=== PATIENT | male | born 1975 | race Caucasian/White ===

== ENCOUNTER 2016-05-24 13:43 | Observation (INO) | payer SELFPAY ==
[~2016-05-24] VITALS: Ht 167.6 cm; Wt 80.0 kg
[~2016-05-24 13:43] MED LIST: INSU100V3 SC; METO10TA PO; PRIL20CA PO; TRAM50 PO
[2016-05-24 13:45] VITALS: BP 152/88; PULSE 88; RESP 20; TEMP 97.7; O2SAT 97
[2016-05-24] MEDS ORDERED: OMEP20TA PO (15:08)
[2016-05-24] MEDS ORDERED: NOVONP2 SQ (15:08)
--- NOTE | 2016-05-24 15:32 | RADRPT ---
EXAM DATE/TIME: 05/24/2016 15:26 [facility] COMPARISON: No previous studies available for comparison. INDICATIONS : Patient has had swelling in his legs for a week. He states he has pain in both legs. Patient is a smo ker. MEDICAL HISTORY : Hypertension. Diabetes mellitus type I. SURGICAL HISTORY : None. ENCOUNTER: Initial ACUITY: 1 week PAIN SCORE: 7/10 LOCATION: Bilateral Legs. FINDINGS: A single view of the chest demonstrates the lungs to be symmetrically aerated without evidence of mas s, infiltrate or effusion. The cardiomediastinal contours are unremarkable. Osseous structures are intact. CONCLUSION: No acute disease. Sorin Bejarano MD on May 24, 2016 at 15:30 Board Certified Radiologist. This report was verified electronically.
[2016-05-24 15:37] LABS: AUTOMATED NEUTROPHIL # 3.2 TH/MM3 (1.8-7.7); BASOPHIL # 0.1 TH/MM3 (0-0.2); BASOPHIL % 1.4 % (0.0-2.0); EOSINOPHIL # 0.1 TH/MM3 (0-0.4); EOSINOPHIL % 2.1 % (0.0-4.0); HEMATOCRIT 34.3 % (39.0-51.0); HEMO FLAGS DIFF FINAL; LYMPH % 41.6 % (9.0-44.0); LYMPHOCYTE # 2.8 TH/MM3 (1.0-4.8); MEAN CELL VOLUME 95.2 FL (80.0-100.0); MEAN CORPUSCULAR HEMOGLOBIN 31.9 PG (27.0-34.0); MEAN CORPUSCULAR HGB CONC 33.5 % (32.0-36.0); NEUT % 46.9 % (16.0-70.0); PLATELET COUNT 288 TH/MM3 (150-450); RED BLOOD COUNT 3.61 MIL/MM3 (4.50-5.90); RED CELL DISTRIBUTION WIDTH 13.8 % (11.6-17.2); WHITE BLOOD COUNT 6.7 TH/MM3 (4.0-11.0)
[2016-05-24 15:48] LABS: APTT (PATIENT) 23.9 SEC (24.3-30.1); INTERNATIONAL NORMALIZED RATIO 0.9 RATIO; PROTHROMBIN TIME - PATIENT 9.8 SEC (9.8-11.6)
[2016-05-24 15:59] LABS: ANION GAP 8 MEQ/L (5-15); AST (GOT) 16 U/L (15-37); BICARBONATE 28.9 MEQ/L (21.0-32.0); BLOOD UREA NITROGEN 19 MG/DL (7-18); CHLORIDE 108 MEQ/L (98-107); GLOMERULAR FILTRATION RATE 76 ML/MIN (>89); MAGNESIUM 1.9 MG/DL (1.5-2.5); POTASSIUM 3.2 MEQ/L (3.5-5.1); SODIUM (NA) 145 MEQ/L (136-145)
--- NOTE | 2016-05-24 15:59 | PD ---
HPI Chief Complaint: Edema Time Seen by Provider: 15:55 Travel History International Travel<30 days: No Contact w/Intl Traveler<30days: No Traveled to known affect area: No History of Present Illness HPI 40-year-old male that presents to the ED for evaluation of lower leg edema. Patient states that his been ongoing for the past couple of weeks but has been worsening for the past couple of days. Per patient she's had swelling in the past on the leg secondary to driving long distances but he never really think much of it. Per patient usually goes away. Per patient he has been just dealing with by walking. Per patient usually goes away but what scared him for the past couple days is that his been having more swelling on his groin area especially on his testicles which is new. He denies any pain with it but states that he feels like his full. Per patient he is also having some swelling on his abdomen which per patient is usually no swollen like this. He does have a history of gastroparesis and diabetes type 1. He denies any fevers chills or sweats. No history of blood clots. No recent travel. Per patient she is compliant with his diabetic medication. Denies any history of hypothyroidism. No allergies to medication. PFSH Past Medical History Blood Disorders: No Heart Rhythm Problems: No Cancer: No Cardiovascular Problems: Yes (htn) High Cholesterol: No Chest Pain: No Congestive Heart Failure: No Diabetes: Yes (novolog N) Patient Takes Glucophage: No Diminished Hearing: No Endocrine: Yes Gastrointestinal Disorders: Yes (GASTROPARESIS) Genitourinary: No Hypertension: Yes Immune Disorder: No Implanted Vascular Access Dvce: No Musculoskeletal: No Neurologic: No Psychiatric: No Reproductive: No Respiratory: No Immunizations Current: Yes Thyroid Disease: No PNEUMOCCOCAL Vaccine (Year): 2 Past Surgical History Surgical History: No Previous Surgery Other Surgery: No Social History Alcohol Use: Yes Tobacco Use: Yes (1.5 PPD) Substance Use: Yes (MARAJUANA) Allergies-Medications (Allergen,Severity, Reaction): Coded Allergies: No Known Allergies (Verified , 05/24/16) Reported Meds & Prescriptions Reported Meds & Active Scripts Active Reported Omeprazole 20 Mg Tab 20 Mg PO DAILY Novolin N Inj (Insulin Human NPH) 1,000 Unit/10 Ml Vial 0 SQ DIRECTED Sliding Scale As Directed. Review of Systems General / Constitutional: No: Fever, Chills, Weight Gain, Weight Loss, Other Eyes: No: Diploplia, Blurred Vision, Photophobia, Drainage, Redness, Foreign Body Sensation, Pain, Tearing, Blind Spots, Visual changes, Blindness, Other HENT: No: Headaches, Vertigo, Lightheadedness, Sore Throat, Rhinitis, Rhinorrhea, Congestion, Nosebleed, Neck Stiffness, Neck Pain, Masses, Gingival Bleeding, Dental Difficulties, Ear Discharge, Earache, Other Cardiovascular: Positive: Edema, Claudication, No: Chest Pain or Discomfort, Palpitations, Irregular Rhythm, Tachycardia, Diaphoresis, Syncope, Dyspnea on exertion, Varicosities, Cyanosis, Varicosities, Phlebitis, Other Respiratory: No: Cough, Shortness of Breath, Wheezing, Sneezing, Orthopnea, Hemoptysis, Stridor, Night Sweats, Pleuritic Pain, Other Gastrointestinal: Positive: Abdominal Pain, No: Nausea, Vomiting, Diarrhea, Hematemesis, Hematochezia, Constipation, Changes in Bowel Habits, Indigestion, Dysphagia, Loss of Appetite, Other Genitourinary: No: Urgency, Frequency, Dysuria, Nocturia, Hematuria, Decreased Urinary Output, Oliguria, Hesitancy, Dribbling, Incontinence, Pelvic Pain, Flank Pain, Dyspareunia, Discharge, Dysmenorrhea, Menorrhagia, Metorrhagia, Vaginal Bleeding, Other Musculoskeletal: Positive: Weakness, Edema, No: Myalgias, Arthralgias, Limited ROM, Cramping, Pain, Atrophy, Other Skin: No Rash, No Itching, No Dryness, No Lumps, No Hives, No Change in Pigmentation, No Change in nails, No Alopecia, No Lesions, No Breast Lumps, No Breast Tenderness, No Breast Swelling, No Other Neurologic: No: Weakness, Dizziness, Syncope, Focal Abnormalities, Coordination Problem, Tremor, Ataxia, Headache, Change in Mentation, Slurred Speech, Paresthesia, Incontinence, Seizures, Sensory Disturbance, Other Psychiatric: No: Anxiety, Depression, Suicidal Ideations, Disorder of Thought, Mood Disorder, Substance Abuse, Homicidal Ideation, Other Endocrine: No: Heat Intolerance, Cold Intolerance, Polyuria, Polydipsia, Other Hematologic/Lymphatic: No: Easy Bruising, Lymph Node Enlargement, Other Physical Exam Narrative GENERAL: SKIN: Warm and dry. HEAD: Atraumatic. Normocephalic. EYES: Pupils equal and round. No scleral icterus. No injection or drainage. ENT: No nasal bleeding or discharge. Mucous membranes pink and moist. Tongue is midline. No uvula deviation. NECK: Trachea midline. No JVD. CARDIOVASCULAR: Regular rate and rhythm. No murmurs, S3, S4. RESPIRATORY: No accessory muscle use. Clear to auscultation. Breath sounds equal bilaterally. GASTROINTESTINAL: Abdomen soft, non-tender, nondistended. Hepatic and splenic margins not palpable. MUSCULOSKELETAL: Extremities without clubbing, cyanosis, or edema. No obvious deformities. Full range of motion of the upper and lower extremities bilaterally. 2+ pulses bilaterally. No lumbar, thoracic, cervical spine tenderness to palpation. NEUROLOGICAL: Awake and alert. No obvious cranial nerve deficits. Motor grossly within normal limits. Five out of 5 muscle strength in the arms and legs. Normal speech. PSYCHIATRIC: Appropriate mood and affect; insight and judgment normal. Data Data Last Documented VS Vital Signs Date Time Temp Pulse Resp B/P Pulse Ox O2 Delivery O2 Flow Rate FiO2 05/24/16 17:11 77 18 139/87 98 Room Air 05/24/16 13:45 97.7 Orders Electrocardiogram (05/24/16 15:01) Complete Blood Count With Diff (05/24/16 15:01) Prothrombin Time / Inr (Pt) (05/24/16 15:01) Act Partial Throm Time (Ptt) (05/24/16 15:01) Magnesium (Mg) (05/24/16 15:01) Thyroid Stimulating Hormone (05/24/16 15:01) Chest, Single Ap (05/24/16 15:01) Ct Abd/Pel W Iv Contrast(Rout) (05/24/16 15:01) Iv Access Insert/Monitor (05/24/16 15:01) Comprehensive Metabolic Panel (05/24/16 15:01) B-Type Natriuretic Peptide (05/24/16 15:01) Us Leg Venous Doppler Bilat (05/24/16 16:23) Iohexol 350 Inj (Omnipaque 350 Inj) (05/24/16 17:10) Furosemide Inj (Lasix Inj) (05/24/16 18:15) Labs Laboratory Tests Test 05/24/16 15:14 White Blood Count 6.7 TH/MM3 Red Blood Count 3.61 MIL/MM3 Hemoglobin 11.5 GM/DL Hematocrit 34.3 % Mean Corpuscular Volume 95.2 FL Mean Corpuscular Hemoglobin 31.9 PG Mean Corpuscular Hemoglobin 33.5 % Concent Red Cell Distribution Width 13.8 % Platelet Count 288 TH/MM3 Mean Platelet Volume 7.6 FL Neutrophils (%) (Auto) 46.9 % Lymphocytes (%) (Auto) 41.6 % Monocytes (%) (Auto) 8.0 % Eosinophils (%) (Auto) 2.1 % Basophils (%) (Auto) 1.4 % Neutrophils # (Auto) 3.2 TH/MM3 Lymphocytes # (Auto) 2.8 TH/MM3 Monocytes # (Auto) 0.5 TH/MM3 Eosinophils # (Auto) 0.1 TH/MM3 Basophils # (Auto) 0.1 TH/MM3 CBC Comment DIFF FINAL Differential Comment Prothrombin Time 9.8 SEC Prothromb Time International 0.9 RATIO Ratio Activated Partial 23.9 SEC Thromboplast Time Sodium Level 145 MEQ/L Potassium Level 3.2 MEQ/L Chloride Level 108 MEQ/L Carbon Dioxide Level 28.9 MEQ/L Anion Gap 8 MEQ/L Blood Urea Nitrogen 19 MG/DL Creatinine 1.09 MG/DL Estimat Glomerular Filtration 76 ML/MIN Rate Random Glucose 155 MG/DL Calcium Level 7.5 MG/DL Magnesium Level 1.9 MG/DL Total Bilirubin 0.2 MG/DL Aspartate Amino Transf 16 U/L (AST/SGOT) Alanine Aminotransferase 23 U/L (ALT/SGPT) Alkaline Phosphatase 49 U/L B-Type Natriuretic Peptide 74 PG/ML Total Protein 5.0 GM/DL Albumin 2.3 GM/DL Thyroid Stimulating Hormone 0.655 uIU/ML [address] [place] [address] Medical Decision Making Medical Screen Exam Complete: Yes Emergency Medical Condition: Yes Medical Record Reviewed: Yes Interpretation(s) CBC & BMP Diagram 05/24/16 15:14 LFTs WNL BNP WNL Last Impressions Chest X-Ray 05/24/16 1501 Signed Impressions: Service Date/Time: Tuesday, May 24, 2016 15:26 - CONCLUSION: No acute disease. Sorin Bejarano MD Abdomen/Pelvis CT 05/24/16 1501 Signed Impressions: Service Date/Time: Tuesday, May 24, 2016 16:58 - CONCLUSION: 1. No abdominal ascites. 2. No acute inflammatory process. 3. Diffuse anasarca. Sorin Bejarano MD Differential Diagnosis General as edema versus pitting edema versus ascites versus podagra versus DVT versus kidney failure versus liver failure versus Narrative Course 32-year-old male that presents to the ED for evaluation of lower leg edema which is worsening as well as abdominal discomfort. Patient was properly examined and was found to have signs and symptoms consistent with appears to be edema. Unclear etiology at this time. Labs and imaging ordered. Labs and imaging showed no sign of acute disease other than for severe anascara. Case was discussed with my attending evaluated the patient with me and recommends admission for further workup. For sure we don't have an actual source of why the patient is retaining fluid. Residents were paged Phani Mcadams May 24, 2016 15:59
[2016-05-24 16:10] LABS: ALKALINE PHOSPHATASE 49 U/L (45-117); ALT (GPT) 23 U/L (12-78); TOTAL BILIRUBIN ADULT 0.2 MG/DL (0.2-1.0)
--- NOTE | 2016-05-24 16:28 | EKG ---
Date Performed: 05/24/2016 Time Performed: 15:14:08 PTAGE: 40 years EKG: Sinus rhythm NORMAL ECG PREVIOUS TRACING : 05/31/2010 13.14 No significant change from previous tracing noted. DOCTOR: Franki Torres Interpretating Date/Time 05/24/2016 16:26:41
[2016-05-24] MEDS ORDERED: IOHEXOL 350 MG/ML 10 ML VIAL (for RAD DIAG) IV ONE (17:10)
[2016-05-24 17:11] VITALS: BP 139/87; PULSE 77; RESP 18; O2SAT 98
--- NOTE | 2016-05-24 17:23 | RADRPT ---
EXAM DATE/TIME: 05/24/2016 16:58 [facility] COMPARISON: No previous studies available for comparison. INDICATIONS : Abdomen pain, ascites. IV CONTRAST: 86 cc Omnipaque 350 (iohexol) IV ORAL CONTRAST: No oral contrast ingested. RADIATION DOSE: 11.07 CTDIvol (mGy) MEDICAL HISTORY : Hypertension. Diabetes mellitus type 1. SURGICAL HISTORY : None. ENCOUNTER: Initial ACUITY: 1 day PAIN SCALE: 5/10 LOCATION: Abdomen TECHNIQUE: Volumetric scanning of the abdomen and pelvis was performed. Using automated exposure control and ad justment of the mA and/or kV according to patient size, radiation dose was kept as low as reasonably achievable to obtain optimal diagnostic quality images. FINDINGS: LOWER LUNGS: The visualized lower lungs are clear. LIVER: Homogeneous density without lesion. There is no dilation of the biliary tree. No calcified gallston es. Benign calcifications in the periphery of the anterior liver. SPLEEN: Normal size without lesion. PANCREAS: Within normal limits. KIDNEYS: Normal in size and shape. There is no mass, stone or hydronephrosis. ADRENAL GLANDS: Within normal limits. VASCULAR: There is no aortic aneurysm. BOWEL/MESENTERY: The stomach, small bowel, and colon demonstrate no acute abnormality. There is no free intraperitone al air or fluid. ABDOMINAL WALL: Within normal limits. RETROPERITONEUM: There is no lymphadenopathy. BLADDER: No wall thickening or mass. REPRODUCTIVE: Within normal limits. INGUINAL: There is no lymphadenopathy or hernia. MUSCULOSKELETAL: Diffuse anasarca. CONCLUSION: 1. No abdominal ascites. 2. No acute inflammatory process. 3. Diffuse anasarca. Sorin Bejarano MD on May 24, 2016 at 17:20 Board Certified Radiologist. This report was verified electronically.
[2016-05-24] MEDS ORDERED: FUROSEMIDE 40 MG/4 ML VIAL IV PUSH ONE (18:15)
--- NOTE | 2016-05-24 18:53 | RADRPT ---
EXAM DATE/TIME: 05/24/2016 18:07 [facility] COMPARISON: No previous studies available for comparison. INDICATIONS : Bilateral leg swelling. MEDICAL HISTORY : Hypertension. Gastroparesis. Diabetes. Measles. SURGICAL HISTORY : None. ENCOUNTER: Initial ACUITY: 2 weeks PAIN SCORE: 0/10 LOCATION: Bilateral legs. TECHNIQUE: Venous ultrasound of the left and right leg was performed from the inguinal ligament to the proximal calf. Real-time, color Doppler and spectral tracing, compression and augmentation techniques were us ed. FINDINGS: RIGHT LEG: There is normal compressibility of the deep venous system from the inguinal region to the proximal ca lf. No echogenic clot is seen in the lumen of the common femoral, femoral, popliteal, and posterior tibial veins. There is a normal response of the venous system to proximal and distal augmentation an d respiration. Largest lymph node measures 29 mm. LEFT LEG: There is normal compressibility of the deep venous system from the inguinal region to the proximal ca lf. No echogenic clot is seen in the lumen of the common femoral, femoral, popliteal, and posterior tibial veins. There is a normal response of the venous system to proximal and distal augmentation an d respiration. Largest lymph node measures 26 mm. CONCLUSION: 1. No DVT in either lower extremity. 2. Prominent lymph nodes in the groin bilaterally. Sorin Bejarano MD on May 24, 2016 at 18:51 Board Certified Radiologist. This report was verified electronically.
[2016-05-24] MEDS ORDERED: NICOTINE 14 MG/24 HR PATCH TD ONE (19:15)
--- NOTE | 2016-05-24 20:02 | HHI.HP ---
[facility] Service Family Medicine Primary Care Physician No Primary Care Physician Admission Diagnosis anasarca, edema of unknown etiology Diagnoses: International Travel<30 Days: No Contact w/Intl Traveler<30days: No Known Affected Area: No History of Present Illness Patient is a 40-year-old man with a history of diabetes who presents with a chief complaint of edema and anasarca. Patient reports edema in his legs, abdomen, scrotum. Patient has noted slight swelling of legs since last year associated with sitting in a chair. This lower extremity edema usually only lasts a night and is gone by the time he wakes up in the morning. This problem didn't really bother him, and he has not seen a doctor about this problem. Patient reports that this episode of swelling has been different because he has been swollen for a week. He reports that it is gradually getting worse. He doesn 't know the cause. Patient reports that he has been a pack per day smoker since 20 years old. He also reports that everything he eats is salty. Patient denied any history of any heart disease, liver disease, kidney disease. Patient reports that he did present here to [facility] about a year ago and was told that he may need an outpatient cholecystectomy. He denies any chest pain, shortness of breath, orthopnea, dyspnea on exertion, paroxysmal nocturnal dyspnea, fever, chills, losing weight, cold symptoms including cough, runny nose. Pt reports vomiting daily for years. He thinks it may be related to reflux. Patient reports history of an upper endoscopy. Patient reports daily marijuana use. He reports abdominal pain associated with nausea and vomiting. He reports that the only thing that seems to help relieve the symptoms is a hot shower. Patient reports 10-15 episodes of diarrhea every day for the past 6 months. He denies any bloody or black stools. He reports that his bowel movements are liquid and karen in color. No history of blood clots. No recent travel. Per patient, he is compliant with his diabetic medication. Denies any history of hypothyroidism. No allergies to medication. Patient reports increased polyuria and polydipsia when his blood sugar runs high , which has not been a problem recently. (Jose Angel Costa MD R1) Review of Systems Constitutional: COMPLAINS OF: Weight gain (past week), DENIES: Fever, Weight loss, Chills, Dizziness Endocrine: DENIES: Polydipsia, Polyuria Eyes: COMPLAINS OF: Blurred vision (for past week, with waking up) Ears, nose, mouth, throat: DENIES: Throat pain, Running Nose Respiratory: DENIES: Cough, Shortness of breath Cardiovascular: COMPLAINS OF: Lower Extremity Edema, DENIES: Chest pain, Dyspnea on Exertion, PND, Orthopnea, Claudication Gastrointestinal: COMPLAINS OF: Abdominal pain, Diarrhea, Nausea, Vomiting, Difficulty Swallowing, DENIES: Black stools, Bloody stools, Constipation Genitourinary: COMPLAINS OF: Testicular Swelling, DENIES: Dysuria, Testicular Pain Musculoskeletal: COMPLAINS OF: Joint pain (hand arthritis), Back pain Integumentary: DENIES: Rash Hematologic/lymphatic: DENIES: Bruising Neurologic: COMPLAINS OF: Paresthesias (3 fingers right, 2 fingers left go numb , tingly, pins, needles), DENIES: Abnormal gait, Headache, Localized weakness Psychiatric: COMPLAINS OF: Mood changes (angrier), DENIES: Anxiety (Jose Angel Costa MD R1) Past Family Social History Past Medical History DM since 14 years ago, onset in his 20s. History of insulin dependent diabetes mellitus, gastroparesis, esophagitis with ulceration status post EGD in August 2011 Past Surgical History upper endoscopy/EGD in August 2011 Reported Medications insulin novolin 40u bid ranitidine (Jose Angel Costa MD R1) Allergies: Coded Allergies: No Known Allergies (Verified , 05/24/16) Active Ordered Medications Current Medications Medications (Trade) Dose Ordered Sig/Fatimah Route Start Time Stop Time Status Last Admin (NS Flush) 2 ml UNSCH PRN FLUSH 05/24/16 20:30 (NS Flush) 2 ml BID FLUSH 05/24/16 21:00 05/24/16 21:22 (Tylenol) 650 mg Q4H PRN PO 05/24/16 20:30 (Zofran Inj) 4 mg Q6H PRN IVP 05/24/16 20:30 (Restoril) 15 mg HS PRN PO 05/24/16 20:30 (Lovenox Inj) 40 mg Q24H SQ 05/24/16 21:00 05/24/16 21:20 (Narcan Inj) 0.4 mg UNSCH PRN IV 05/24/16 20:30 (Lasix Inj) 20 mg BID@09,18 IV PUSH 05/25/16 09:00 (KCl) 40 meq DAILY PO 05/24/16 20:30 05/24/16 21:20 Family History DM in grandparents on both sides, and a sister Grandma had a CVA, heart surgery Social History Patient reports smoking about 8 g of marijuana every day to help with nausea, insomnia, back pain, appetite. Patient reports smoking 1ppd for about 20years. Patient reports alcohol use about once every 6 months. He denies ever binge drinking or daily drinking Alcohol. (Jose Angel Costa MD R1) Physical Exam Vital Signs Vital Signs Date Time Temp Pulse Resp B/P Pulse Ox O2 Delivery O2 Flow Rate FiO2 05/24/16 17:11 77 18 139/87 98 Room Air 05/24/16 15:05 18 05/24/16 13:45 97.7 88 20 152/88 97 Room Air Physical Exam GENERAL: This is a well-nourished, well-developed male patient, in no apparent distress. SKIN: No rashes, ecchymoses or lesions. Cool and dry. + Multiple Tattoos HEAD: Atraumatic. Normocephalic. EYES: Pupils mildly unequal but round and reactive. Extraocular motions intact. No scleral icterus. No injection or drainage. ENT: Nose without bleeding, purulent drainage. Throat without erythema, tonsillar hypertrophy or exudate. Uvula midline. Airway patent. NECK: Trachea midline. No JVD or lymphadenopathy. Supple, nontender, no meningeal signs. CARDIOVASCULAR: Regular rate and rhythm without murmurs, gallops, or rubs. RESPIRATORY: Clear to auscultation. Breath sounds equal bilaterally. No wheezes , rales, or rhonchi. GASTROINTESTINAL: Abdomen soft, non-tender, distended with positive fluid wave. No hepatomegaly, or palpable masses. No guarding. GENITOURINARY: Markedly edematous/distended scrotum MUSCULOSKELETAL: Extremities without clubbing, cyanosis. Lower extremities with 2+ pitting edema to knees bilaterally, 1+ pitting edema up lateral thighs. No joint tenderness, effusion, or edema noted. No calf tenderness. NEUROLOGICAL: Awake and alert. Cranial nerves II through XII grossly intact. Motor and sensory grossly within normal limits. Normal speech. Laboratory Laboratory Tests Test 05/24/16 15:14 White Blood Count 6.7 Red Blood Count 3.61 Hemoglobin 11.5 Hematocrit 34.3 Mean Corpuscular Volume 95.2 Mean Corpuscular Hemoglobin 31.9 Mean Corpuscular Hemoglobin 33.5 Concent Red Cell Distribution Width 13.8 Platelet Count 288 Mean Platelet Volume 7.6 Neutrophils (%) (Auto) 46.9 Lymphocytes (%) (Auto) 41.6 Monocytes (%) (Auto) 8.0 Eosinophils (%) (Auto) 2.1 Basophils (%) (Auto) 1.4 Neutrophils # (Auto) 3.2 Lymphocytes # (Auto) 2.8 Monocytes # (Auto) 0.5 Eosinophils # (Auto) 0.1 Basophils # (Auto) 0.1 CBC Comment DIFF FINAL Differential Comment Prothrombin Time 9.8 Prothromb Time International 0.9 Ratio Activated Partial 23.9 Thromboplast Time Sodium Level 145 Potassium Level 3.2 Chloride Level 108 Carbon Dioxide Level 28.9 Anion Gap 8 Blood Urea Nitrogen 19 Creatinine 1.09 Estimat Glomerular Filtration 76 Rate Random Glucose 155 Calcium Level 7.5 Magnesium Level 1.9 Total Bilirubin 0.2 Aspartate Amino Transf 16 (AST/SGOT) Alanine Aminotransferase 23 (ALT/SGPT) Alkaline Phosphatase 49 B-Type Natriuretic Peptide 74 Total Protein 5.0 Albumin 2.3 Thyroid Stimulating Hormone 0.655 3rd Gen (Jose Angel Costa MD R1) Result Diagram: 05/24/16 1514 05/24/16 1514 Imaging Last Impressions Lower Extremity Ultrasound 05/24/16 1623 Signed Impressions: Service Date/Time: Tuesday, May 24, 2016 18:07 - CONCLUSION: 1. No DVT in either lower extremity. 2. Prominent lymph nodes in the groin bilaterally. Sorin Bejarano MD Chest X-Ray 05/24/16 1501 Signed Impressions: Service Date/Time: Tuesday, May 24, 2016 15:26 - CONCLUSION: No acute disease. Sorin Bejarano MD Abdomen/Pelvis CT 05/24/16 1501 Signed Impressions: Service Date/Time: Tuesday, May 24, 2016 16:58 - CONCLUSION: 1. No abdominal ascites. 2. No acute inflammatory process. 3. Diffuse anasarca. Sorin Bejarano MD Course In the emergency department, patient had a BNP, CMP, CT abdomen and pelvis with IV contrast, AP chest x-ray, TSH, magnesium, a PTT, PT/INR, CBC, EKG, ultrasound of legs with venous Doppler, Lasix 40 mg IV push 1, UA, nicotine patch, admission order. (Jose Angel Costa MD R1) Assessment and Plan Assessment and Plan Patient is 40-year-old man with a history of insulin-dependent diabetes mellitus and leg swelling for the past year who presents with anasarca for the past week. Patient also presents with 10-15 episodes per day of liquid diarrhea for the past 6 months, and nonbilious nonbloody vomiting associated with nausea and abdominal pain everyday for years. Code Status Full code Discussed Condition With Patient seen and discussed with Dr. Sohan Cee (Jose Angel Costa MD R1) Problem List: (1) Anasarca Status: Acute Plan: Patient is a 40-year-old man with a one-year history of occasional leg swelling, a high salt diet, [id number] smoking history, no previous heart disease, liver disease, kidney disease who presents with a week of gradually worsening anasarca. Unlikely to be related to his kidney, liver, heart given blood work and CT abdomen and pelvis within normal limits. Unlikely related to clot given negative ultrasound study with venous Doppler. UA showed proteinuria of 100, less than expected for nephrotic syndrome, which is defined his proteinuria greater than 3.5 g per day, albumin less than 3.5 mg/ dL, edema, increased cholesterol 24-hour urine protein, urine protein/creatinine ratio Lipid studies looking for increased cholesterol If patient is found to have nephrotic syndrome, we will initiate workup with urine microscopy, ROMA, anti-double stranded DNA, C3, C4, SPEP, free light chains , hepatitis B, hepatitis C, HIV, RPR, PLA2 receptor antibody, consider renal biopsy Possibly related to high salt diet Possibly related to smoking causing venous insufficiency vs lymphedema Lasix 20 mg IV twice a day Potassium chloride 40 mEq by mouth daily BMP daily CANDACE stockings bilaterally Physical therapy consult to help patient with mobility Case management consult to help connect this patient with a primary care physician Oxygen as needed (2) Nausea and vomiting Status: Chronic Plan: Patient with a history of daily marijuana use reports daily nonbilious nonbloody vomiting every day for years with associated nausea and abdominal pain. He reports that these symptoms are only relieved with hot showers and marijuana use. Differential diagnosis includes IBD, IBS, peptic ulcer disease, chronic pancreatitis, or most likely diagnosis of cannabis hyperemesis syndrome. Recommended patient try to go at least a month without smoking any marijuana GI consult (3) Dysphagia Status: Chronic Plan: Patient is an insulin-dependent diabetic with a history of gastroparesis. GI consult for dysphagia, pain and difficulty swallowing (4) Diarrhea Status: Chronic Plan: Patient reports 6 months of 10-15 episodes per day of nonbloody, sand- colored diarrhea. Denies any fever, weight loss, black or bloody stools. Differential diagnosis includes medication-induced such as PPI, osmotic such as lactose intolerance, malabsorption such as celiac disease, Whipple's disease, small intestinal bacterial overgrowth, pancreatic insufficiency, inflammatory such as infections or inflammatory bowel disease, secretory such as hormonal imbalances or laxative abuse, motility such as irritable bowel syndrome. GI consult Endomysial antibodies, tissue transglutaminase antibodies to rule out celiac disease; also getting iron panel to look for iron deficiency anemia or folate deficiency anemia Blood culture Stool leukocytes, stool Hemoccult, fecal fat to differentiate between different kinds of diarrhea Lipase to rule out pancreatic insufficiency CBC, BMP qd (5) Anemia Status: Chronic Plan: Patient presents with anemia with a hemoglobin of 11.5 but normal MCV in the context of a possibly malabsorptive diarrhea. Iron studies (6) Insulin dependent diabetes mellitus Status: Chronic Plan: Patient reports taking Novolin 40 units subcutaneous twice a day. Novolin 20 units subcutaneous twice a day Low-dose sliding scale insulin protocol with Novolin Hemoglobin A1c (7) Nutrition, metabolism, and development symptoms Status: Acute Plan: Fluids: Patient hydrating well by mouth Electrolytes: Monitor and replete as necessary Nutrition: Regular basic diet with fluid restriction to less than 1.5 L per day and salt restriction to less than 2 g of sodium per day GI prophylaxis: Continue patient's home anti-reflux medication converted by our pharmacy to pantoprazole 20 mg by mouth daily; consider holding this medication as a possible cause of patient's diarrhea, but patient insists that he needs this medication to avoid reflux symptoms (8) No contraindication to deep vein thrombosis (DVT) prophylaxis Status: Acute Plan: Patient with normal renal function. Lovenox 40 mg subcutaneous every 24 hours (9) Tobacco use Status: Chronic Plan: Patient reports smoking about a pack per day for the past 20 years. Nicotine patch transdermal daily (Jose Angel Costa MD R1) Jose Angel Costa MD R1 May 24, 2016 20:02 Arlette Elise MD May 25, 2016 15:59
[2016-05-24 20:26] LABS: BLOOD, URINE TRACE (NEG); COMMENT (UR) CULT NOT INDICATED; CULTURE IF INDICATED CULT NOT INDICATED; GLUCOSE,URINE NEG (NEG); KETONE, URINE NEG (NEG); MUCUS URINE FEW /lpf (OCC); NITRITE,URINE NEG (NEG); PH, URINE 6.5 (5.0-8.5); SQUAMOUS EPITHELIAL CELL URINE <1 /hpf (0-5); URINE COLOR LIGHT-YELLOW (YELLW/STRAW)
[2016-05-24] MEDS ORDERED: SODIUM CHLORIDE 0.9% FLUSH 5 ML FLUSH FLUSH PRN (20:30)
[2016-05-24] MEDS ORDERED: NALOXONE HCL 0.4 MG/ML AMP IV PRN (20:30)
[2016-05-24] MEDS ORDERED: TEMAZEPAM 15 MG CAP PO PRN (20:30)
[2016-05-24] MEDS ORDERED: ACETAMINOPHEN 325 MG TAB PO PRN (20:30)
[2016-05-24] MEDS ORDERED: ONDANSETRON HCL 4 MG/2 ML VIAL IVP PRN (20:30)
[2016-05-24] MEDS ORDERED: ENOXAPARIN SODIUM 40 MG/0.4 ML SYRINGE SQ SCH (21:00)
[2016-05-24 21:19] VITALS: BP 136/82; PULSE 73; RESP 16; O2SAT 99
[2016-05-24] MEDS: POTASSIUM CHLORIDE 10 MEQ CONTROLLED RELEASE TAB PO SCH (21:20)
[2016-05-24] MEDS: SODIUM CHLORIDE 0.9% FLUSH 5 ML FLUSH FLUSH SCH (21:22)
[2016-05-24] MEDS ORDERED: GLUCAGON 1 MG/ML VIAL OTHER PRN (22:00)
[2016-05-24] MEDS ORDERED: DEXTROSE 50% IN WATER 50 ML VIAL(D50) IV PUSH PRN (22:00)
[2016-05-24 22:35] VITALS: BP 155/97; PULSE 75; RESP 20; TEMP 97.8; O2SAT 98
[2016-05-25 00:55] VITALS: BP 137/68; PULSE 73; RESP 20; TEMP 97.6; O2SAT 99
[2016-05-25 04:48] VITALS: BP 135/91; PULSE 73; RESP 20; TEMP 98; O2SAT 98
[2016-05-25] MEDS: INSULIN NovoLIN REGULAR SUPPLEMENTAL SCALE SQ SCH ×2 (06:41→11:00)
[2016-05-25 07:26] VITALS: O2SAT 98
[2016-05-25 08:00] VITALS: BP 153/89; PULSE 72; RESP 18; TEMP 96.1; O2SAT 98
[2016-05-25] MEDS ORDERED: INSULIN HUMAN REGULAR 1,000 UNITS/10 ML VIAL SQ SCH (08:00)
[2016-05-25 08:12] LABS: AUTOMATED NEUTROPHIL # 3.4 TH/MM3 (1.8-7.7); BASOPHIL # 0.1 TH/MM3 (0-0.2); BASOPHIL % 1.4 % (0.0-2.0); EOSINOPHIL # 0.2 TH/MM3 (0-0.4); EOSINOPHIL % 2.6 % (0.0-4.0); HEMATOCRIT 37.1 % (39.0-51.0); HEMO FLAGS DIFF FINAL; LYMPH % 31.9 % (9.0-44.0); LYMPHOCYTE # 1.9 TH/MM3 (1.0-4.8); MEAN CELL VOLUME 95.1 FL (80.0-100.0); MEAN CORPUSCULAR HGB CONC 33.7 % (32.0-36.0); MONO % 6.2 % (0.0-8.0); NEUT % 57.9 % (16.0-70.0); PLATELET COUNT 295 TH/MM3 (150-450); RED CELL DISTRIBUTION WIDTH 13.8 % (11.6-17.2); WHITE BLOOD COUNT 5.8 TH/MM3 (4.0-11.0)
[2016-05-25] MEDS: POTASSIUM CHLORIDE 10 MEQ CONTROLLED RELEASE TAB PO SCH (08:26)
[2016-05-25] MEDS: SODIUM CHLORIDE 0.9% FLUSH 5 ML FLUSH FLUSH SCH (08:27)
[2016-05-25 08:35] LABS: ANION GAP 7 MEQ/L (5-15); BICARBONATE 28.6 MEQ/L (21.0-32.0); BLOOD UREA NITROGEN 16 MG/DL (7-18); CHLORIDE 106 MEQ/L (98-107); GLOMERULAR FILTRATION RATE 96 ML/MIN (>89); HDL CHOLESTEROL 95.3 MG/DL (40.0-60.0); LDL CHOLESTEROL 84 MG/DL (0-99); POTASSIUM 3.8 MEQ/L (3.5-5.1); SODIUM (NA) 142 MEQ/L (136-145); TRANSFERRIN IRON PROFILE 200 MG/DL (200-360)
[2016-05-25] MEDS ORDERED: ALBUMIN HUMAN 5% 25 GM/500 ML BOTTLE IV SCH ×2 (09:00→18:00)
[2016-05-25] MEDS ORDERED: PANTOPRAZOLE SOD 20 MG DELAYED RELEASE TAB PO SCH (09:00)
[2016-05-25] MEDS ORDERED: NICOTINE 14 MG/24 HR PATCH TD SCH (09:00)
[2016-05-25] MEDS ORDERED: FUROSEMIDE 20 MG/2 ML VIAL IV PUSH SCH (09:00)
[2016-05-25 10:18] LABS: HEMOGLOBIN A1a 1.3 %; HEMOGLOBIN A1b 0.9 %; HEMOGLOBIN Ao 76.3 %; HEMOGLOBIN F 1.6 %; HEMOGLOBIN LA1C 3.4 %; HEMOGLOBIN P3 4.6 %
[2016-05-25 12:00] VITALS: BP 141/85; PULSE 75; RESP 16; TEMP 96; O2SAT 99
[2016-05-25] MEDS ORDERED: ERYTHROMYCIN EC 500 MG TABEC PO SCH (12:00)
--- NOTE | 2016-05-25 14:19 | HHI.DCPOC ---
Discharge Care Plan Diagnosis: (1) Anasarca (2) Anemia (3) Diarrhea (4) Nausea and vomiting (5) Insulin dependent diabetes mellitus (6) Pancreatitis Goals to Promote Your Health * To prevent worsening of your condition and complications * To maintain your health at the optimal level Directions to Meet Your Goals Take your medications as prescribed Follow your dietary instruction Follow activity as directed Keep your appointments as scheduled Take your immunizations and boosters as scheduled If your symptoms worsen call your PCP, if no PCP go to Urgent Care Center or Emergency Room Smoking is Dangerous to Your Health. Avoid second hand smoke Call the 24-hour hour crisis hotline for domestic abuse at [address] MD R1 May 25, 2016 14:19 Arlette Elise MD May 25, 2016 15:59
[2016-05-25] MEDS ORDERED: POTA-243 PO (14:25)
[2016-05-25] MEDS ORDERED: ERYT500 PO ×2 (14:25→14:34)
[2016-05-25] MEDS ORDERED: FURO20TA PO (14:25)
--- NOTE | 2016-05-25 16:10 | HHI.FPPN ---
Subjective Subjective Patient seen and examined with the resident team. Case reviewed and discussed Please refer to resident H&P for further details regarding HPI, ROS, PMH, SurgHx , FH and SocHX In summary, patient is a 40yoM with a history of insulin-dependent DM, daily MJ use and tobacco dependence. He presents with intractable emesis and diarrhea as well as diffuse swelling of his LE and scrotum. Of note, patient had a GES in 2009 demonstrating severe gastroparesis not responsive to reglan. He is seen in his hospital room this am and reports that he is feeling almost back to normal. He tolerated breakfast without vomiting. [facility] Objective Objective Last Impressions Lower Extremity Ultrasound 05/24/16 1623 Signed Impressions: Service Date/Time: Tuesday, May 24, 2016 18:07 - CONCLUSION: 1. No DVT in either lower extremity. 2. Prominent lymph nodes in the groin bilaterally. Sorin Bejarano MD Chest X-Ray 05/24/16 1501 Signed Impressions: Service Date/Time: Tuesday, May 24, 2016 15:26 - CONCLUSION: No acute disease. Sorin Bejarano MD Abdomen/Pelvis CT 05/24/16 1501 Signed Impressions: Service Date/Time: Tuesday, May 24, 2016 16:58 - CONCLUSION: 1. No abdominal ascites. 2. No acute inflammatory process. 3. Diffuse anasarca. Sorin Bejarano MD Laboratory Tests - Abnormals Test 05/24/16 05/25/16 19:47 07:42 Urine Protein 100 mg/dL Urine Occult Blood TRACE Urine Mucus FEW /lpf Urine Random Total Protein 206 MG/DL Urine Protein/Creatinine Ratio 2.94 Red Blood Count 3.90 MIL/MM3 Hemoglobin 12.5 GM/DL Hematocrit 37.1 % Random Glucose 308 MG/DL Hemoglobin A1c 11.6 % Calcium Level 7.8 MG/DL HDL Cholesterol 95.3 MG/DL Lipase 909 U/L Vital Signs 05/24/16 05/24/16 05/24/16 05/25/16 17:11 21:19 22:35 00:55 Temp 97.8 97.6 Pulse 77 73 75 73 Resp 18 16 20 20 B/P 139/87 136/82 155/97 137/68 Pulse Ox 98 99 98 99 O2 Delivery Room Air Room Air 2/26/17 05/25/16 05/25/16 05/25/16 04:48 07:26 08:00 12:00 Temp 98.0 96.1 96.0 Pulse 73 72 75 Resp 20 18 16 B/P 135/91 153/89 141/85 Pulse Ox 98 98 98 99 FiO2 21 INTAKE & OUTPUT 05/25/16 07:00 Output Total 1500 ml Balance -1500 ml Physical exam GENERAL: wdwn male sitting up in chair, NAD SKIN: Warm and dry. Tattoos, no rashes HEAD: Normocephalic.AT EYES: No scleral icterus. No injection or drainage. ENT: OP clear. MMM NECK: Supple, trachea midline. No JVD or lymphadenopathy. CARDIOVASCULAR: Regular rate and rhythm without murmurs, gallops, or rubs. RESPIRATORY: Breath sounds equal bilaterally. No accessory muscle use. GASTROINTESTINAL: Abdomen soft, non-tender, nondistended. obese MUSCULOSKELETAL: No cyanosis, trace bilateral LE edema to mid lafleur, no scrotal edema, no palpable groin LAD. BACK: Nontender without obvious deformity. No CVA tenderness. NEURO: Awake and alert. Normal speech and gait. CN grossly intact. MAEW. Assessment Assessment 40yoM admitted with: Anasarca Intractable emesis with known gastroparesis Uncontrolled DM Tobacco dependence MJ use daily Hypokalemia Elevated lipase Proteinuria PLAN PLAN Diuresis Anti-emetics Pro-motility agents GI consult Counseled on drug/tobacco use Accu-checks Titrate insulin regimen as needed SSI with basal insulin, A1c pending Patient seen and examined with the resident team. Case reviewed and discussed Agree with plan of care as discussed with me and documented in the resident note. Arlette Elise MD May 25, 2016 16:10
[2016-05-25] MEDS ORDERED: ERYTHROMYCIN ETHYLSUCCINATE 200 MG/5 ML SUSP 100 ML BOTTLE PO SCH (17:00)
--- NOTE | 2016-05-25 17:13 | HHI.FPPN ---
Addendum to progress note ADDENDUM Reason for addendum: Additonal documentation Additional information Received a page at 4:36 PM stating that Mr. Allison had left the hospital without informing his nurse. Dana Lane MD R1 May 25, 2016 17:13
[2016-05-25] MEDS ORDERED: FUROSEMIDE 20 MG TAB PO SCH (18:00)
[2016-05-25] MEDS ORDERED: REMOVE OLD PATCH TD SCH (21:00)
[2016-05-25] MEDS ORDERED: INSULIN DETEMIR 100 UNITS/ML VIAL SQ SCH (21:00)
[2016-05-27 15:25] LABS: FECAL FAT % FAT 17 % fat (< 20)
== END 2016-05-25 17:13 | disposition left against medical advice (07) ==
LOC: NEPE 13:43 → NEDA 18:58 → NEPGCP 21:39
PROVIDERS: ADMIT Family Medicine; ATTEND Family Medicine
DX: R60.1 Generalized edema (principal); E10.43 Type 1 diabetes mellitus with diabetic autonomic (poly)neuropathy; K31.84 Gastroparesis; I10 Essential (primary) hypertension; E87.6 Hypokalemia; N04.9 Nephrotic syndrome with unspecified morphologic changes; D64.9 Anemia, unspecified; G47.00 Insomnia, unspecified; F12.90 Cannabis use, unspecified, uncomplicated; F17.210 Nicotine dependence, cigarettes, uncomplicated
CPT/HCPCS: 71010; 74177; 80048; 80053; 80061; 81001; 82570; 82710; 82948; 83036; 83516; 83540; 83550; 83690; 83735; 83880; 84156; 84443; 85025; 85610; 85730; 86256; 87040; 93005; 93970; 96374; 97163; 99285; G0378; G8987; G8988; J1650; J1815; J1940; Q9967